=== PATIENT | male | born 1965 | race Caucasian/White ===

== ENCOUNTER 2019-10-25 11:51 | Emergency (ER) | payer MEDICARE, OTHER ==
[~2019-10-25] VITALS: Ht 172.7 cm; Wt 79.4 kg
--- NOTE | 2019-10-25 12:21 | NUR ---
PATIENT WAS SEEN BY DR OCAMPO. XRAY DONE. ICE PACK APPLIED. DC AND FOLLOW UP INSTRUCTIONS GIVEN AND EXPLAINED TO PATIENT WHO STATES HE UNDERSTANDS ALL INSTRUCTIONS
== END 2019-10-25 12:24 | disposition home or self-care (01) ==
LOC: ER 12:06
DX: S63.501A Unspecified sprain of right wrist, initial encounter (principal); W01.0XXA Fall on same level from slipping, tripping and stumbling without subsequent striking against object, initial encounter; Y92.89 Other specified places as the place of occurrence of the external cause
CPT/HCPCS: 73110; A4663